=== PATIENT | female | born 1955 ===

== ENCOUNTER 2018-05-03 12:16 | Emergency (ER) | payer OTHER ==
[~2018-05-03] VITALS: Ht 167.6 cm; Wt 87.1 kg
[~2018-05-03 12:16] MED LIST: ATARAX,VISTARIL50 MG PO; BRIN20TA PO; DOXYCYCLINE100 M3 PO; LATU60TA PO; SEPTDS PO; VITAMIN D50000 I3 PO
[2018-05-03] MEDS ORDERED: VOLTAREN100 GM T ×2 (12:30→12:42)
[2018-05-03] MEDS ORDERED: CYCLOBENZAPRINE10 MG PO ×2 (12:30→12:42)
[2018-05-03] MEDS ORDERED: MEDROL DOSEPAK4 MG PO ×2 (12:30→12:42)
== END 2018-05-03 12:35 | disposition home or self-care (01) ==
LOC: ED 12:16
DX: G89.29 Other chronic pain (principal); M54.5 Low back pain; F17.200 Nicotine dependence, unspecified, uncomplicated; Z88.0 Allergy status to penicillin; Z79.2 Long term (current) use of antibiotics; Z79.899 Other long term (current) drug therapy